=== PATIENT | male | born 1945 | race Two or more races ===

== ENCOUNTER 2017-06-01 09:26 | Emergency (ER) | payer OTHER ==
[~2017-06-01] VITALS: Ht 172.7 cm; Wt 81.6 kg
[~2017-06-01 09:26] MED LIST: AMLODIPINE BESYL5 MG; CATAFLAM50 MG; GLIPIZIDE5 MG; GLUCOPHAGE XR500 MG; INTEGRA F CAPS1 EACH PO; METOPROLOL SUCC25 MG; QUINAPRIL HCL20 MG; SIMVASTATIN5 MG; ULTRACET PO; XARELTO10 MG PO
== END 2017-06-01 13:12 | disposition home or self-care (01) ==
LOC: ER 09:26
DX: N39.0 Urinary tract infection, site not specified (principal); N40.1 Benign prostatic hyperplasia with lower urinary tract symptoms; R35.0 Frequency of micturition

== ENCOUNTER 2019-02-19 14:38 | Emergency (ER) | payer OTHER ==
[~2019-02-19] VITALS: Ht 172.7 cm; Wt 81.6 kg
== END 2019-02-19 19:01 | disposition home or self-care (01) ==
LOC: ER 14:38
DX: R42 Dizziness and giddiness (principal); R55 Syncope and collapse

== ENCOUNTER → 2021-02-05 08:07 | Outpatient (CLI) | payer OTHER | END | disposition home or self-care (01) | LOC: LAB 08:07 | PROVIDERS: ATTEND Internal Medicine Cardiovascular Disease | DX: I10 Essential (primary) hypertension (principal); E11.9 Type 2 diabetes mellitus without complications; E03.8 Other specified hypothyroidism; E78.2 Mixed hyperlipidemia; Z12.11 Encounter for screening for malignant neoplasm of colon; N40.0 Benign prostatic hyperplasia without lower urinary tract symptoms; E55.9 Vitamin D deficiency, unspecified ==

== ENCOUNTER → 2021-02-07 09:43 | Outpatient (CLI) | payer OTHER | END | disposition home or self-care (01) | LOC: LAB 09:43 | PROVIDERS: ATTEND Internal Medicine Cardiovascular Disease | DX: I10 Essential (primary) hypertension (principal); E11.9 Type 2 diabetes mellitus without complications; E03.8 Other specified hypothyroidism; E78.2 Mixed hyperlipidemia; Z12.11 Encounter for screening for malignant neoplasm of colon; N40.0 Benign prostatic hyperplasia without lower urinary tract symptoms; E55.9 Vitamin D deficiency, unspecified ==

== ENCOUNTER → 2022-08-05 | Emergency (ER) | payer OTHER ==
[~2022-08-05] VITALS: Ht 172.7 cm; Wt 81.6 kg
== END | disposition home or self-care (01) ==
LOC: ER 14:49
DX: E11.649 Type 2 diabetes mellitus with hypoglycemia without coma (principal); Z79.84 Long term (current) use of oral hypoglycemic drugs; I10 Essential (primary) hypertension

== ENCOUNTER 2022-08-14 08:08 | Outpatient (CLI) | payer OTHER | END 2022-08-14 08:09 | disposition home or self-care (01) | LOC: LAB 08:08 | PROVIDERS: ATTEND Internal Medicine | DX: E03.9 Hypothyroidism, unspecified (principal); N40.0 Benign prostatic hyperplasia without lower urinary tract symptoms; E78.9 Disorder of lipoprotein metabolism, unspecified; I10 Essential (primary) hypertension; E11.9 Type 2 diabetes mellitus without complications; E55.9 Vitamin D deficiency, unspecified; F10.231 Alcohol dependence with withdrawal delirium ==

== ENCOUNTER 2022-08-14 09:11 | Outpatient (CLI) | payer OTHER | END 2022-08-14 09:17 | disposition home or self-care (01) | LOC: SONOGRAMA 09:11 | PROVIDERS: ATTEND Internal Medicine | DX: N40.0 Benign prostatic hyperplasia without lower urinary tract symptoms (principal) ==

== ENCOUNTER 2022-09-11 08:27 | Outpatient (CLI) | payer OTHER | END 2022-09-11 08:28 | disposition home or self-care (01) | LOC: NUCLEAR 08:27 | PROVIDERS: ATTEND Internal Medicine | DX: I11.9 Hypertensive heart disease without heart failure (principal); I48.0 Paroxysmal atrial fibrillation; E11.9 Type 2 diabetes mellitus without complications; E78.2 Mixed hyperlipidemia; R55 Syncope and collapse ==

== ENCOUNTER → 2022-10-08 07:44 | Outpatient (CLI) | payer OTHER | END | disposition home or self-care (01) | LOC: LAB 07:44 | PROVIDERS: ATTEND Internal Medicine | DX: E03.9 Hypothyroidism, unspecified (principal); N40.0 Benign prostatic hyperplasia without lower urinary tract symptoms; E78.9 Disorder of lipoprotein metabolism, unspecified; E11.8 Type 2 diabetes mellitus with unspecified complications; I50.20 Unspecified systolic (congestive) heart failure ==

== ENCOUNTER 2022-10-26 11:22 | Emergency (ER) | payer OTHER ==
[~2022-10-26] VITALS: Ht 172.7 cm; Wt 77.1 kg
== END 2022-10-26 16:11 | disposition home or self-care (01) ==
LOC: ER 11:22
DX: B34.9 Viral infection, unspecified (principal)

== ENCOUNTER 2022-10-28 15:30 | Inpatient (IN) | payer OTHER ==
[~2022-10-28] VITALS: Ht 172.7 cm; Wt 77.6 kg
[2022-10-28] MEDS ORDERED: BACTRIM DS TAB1 EACH PO (16:21)
[2022-11-26] MEDS ORDERED: TAMS0.4C PO (08:21)
[2022-11-26] MEDS ORDERED: INTEGRA F CAPS1 EACH PO (08:21)
[2022-11-26] MEDS ORDERED: WELLBUTRIN SR150 MG PO (08:22)
[2022-11-26] MEDS ORDERED: SIMVASTATIN40 MG PO (08:22)
[2022-11-26] MEDS ORDERED: FUROSEMIDE20 MG PO (08:23)
[2022-11-26] MEDS ORDERED: LEVOTHYROXINE88 MCG PO (08:23)
[2022-11-26] MEDS ORDERED: PROTEINEX-18 LI30 ML PO (08:26)
[2022-11-26] MEDS ORDERED: GLIMEPIRIDE2 MG PO (08:27)
[2022-11-26] MEDS ORDERED: POLY119PG PO (08:28)
[2022-11-26] MEDS ORDERED: PANTOPRAZOLE SO40 MG PO (08:30)
[2022-11-26] MEDS ORDERED: INTESTINEX680 M1 PO (08:30)
[2022-11-26] MEDS ORDERED: INTEGRA PLUS C1 EACH PO (08:34)
[2022-11-26] MEDS ORDERED: TOPROL XL25 M1 PO (08:35)
[2022-11-26] MEDS ORDERED: Lantus 1000 UNITS/10 SUBCUTANEO (08:35)
[2022-11-26] MEDS ORDERED: Xopenex 0.63 MG/3 ML IH (08:35)
== END 2022-11-26 12:22 | DRG 177 ==
LOC: ER 15:30 → ICU-2 19:00 → ICU 10-31 22:49 → MEDJ 11-05 14:23
PROVIDERS: ADMIT Internal Medicine; ATTEND Internal Medicine
PROC: 5A09557 Assistance with Respiratory Ventilation, Greater than 96 Consecutive Hours, Continuous Positive Airway Pressure (ICD-10-PCS; principal; 2022-10-28)
PROC: BW25ZZZ Computerized Tomography (CT Scan) of Chest, Abdomen and Pelvis (ICD-10-PCS; 2022-10-28)
PROC: B24BZZZ Ultrasonography of Heart with Aorta (ICD-10-PCS; 2022-10-28)
PROC: XW033E5 Introduction of Remdesivir Anti-infective into Peripheral Vein, Percutaneous Approach, New Technology Group 5 (ICD-10-PCS; 2022-10-29)
PROC: 4A12X4Z Monitoring of Cardiac Electrical Activity, External Approach (ICD-10-PCS; 2022-11-05)
PROC: BW24ZZZ Computerized Tomography (CT Scan) of Chest and Abdomen (ICD-10-PCS; 2022-11-14)
PROC: BW28ZZZ Computerized Tomography (CT Scan) of Head (ICD-10-PCS; 2022-11-14)
DX: U07.1 COVID-19 (principal); J69.0 Pneumonitis due to inhalation of food and vomit; J96.01 Acute respiratory failure with hypoxia; N39.0 Urinary tract infection, site not specified; N17.9 Acute kidney failure, unspecified; I13.0 Hypertensive heart and chronic kidney disease with heart failure and stage 1 through stage 4 chronic kidney disease, or unspecified chronic kidney disease; F10.139 Alcohol abuse with withdrawal, unspecified; J10.1 Influenza due to other identified influenza virus with other respiratory manifestations; I48.91 Unspecified atrial fibrillation; E11.65 Type 2 diabetes mellitus with hyperglycemia; Z79.84 Long term (current) use of oral hypoglycemic drugs; E03.9 Hypothyroidism, unspecified; E11.22 Type 2 diabetes mellitus with diabetic chronic kidney disease; I50.9 Heart failure, unspecified; N41.9 Inflammatory disease of prostate, unspecified; E87.6 Hypokalemia; R41.82 Altered mental status, unspecified; B96.20 Unspecified Escherichia coli [E. coli] as the cause of diseases classified elsewhere; N40.1 Benign prostatic hyperplasia with lower urinary tract symptoms; N18.2 Chronic kidney disease, stage 2 (mild)